=== PATIENT | female | born 1980 | race Caucasian/White ===

== ENCOUNTER 2020-07-27 08:42 | Emergency (ER) | payer OTHER ==
--- NOTE | 2020-07-27 09:47 | RAD ---
Radiograph left knee 4 views: 07/27/2020 HISTORY: 40-year-old female with acute, traumatic left knee pain FINDINGS: Multiple tendon or ligament screws, including distal femoral metaphysis ACL repair screw, screw at la teral femoral metaphysis, screw at medial tibial plateau, and screw at proximal tibial metaphysis. Moderate to severe joint space narrowing at all 3 compartments with small to moderate osteophytes. Po sterior subluxation of tibia and fibula relative to the femur. No large joint effusion. Soft tissue edema anteriorly. No acute fracture or dislocation identified. IMPRESSION: 1.) Postsurgical changes including anterior cruciate ligament repair and other tendon or ligament rep airs. 2) tricompartmental moderate to severe osteoarthrosis. 3) chronic subluxation of tibial femoral joint 4.) No acute fracture identified 5) diffuse osteopenia
== END 2020-07-27 10:27 | disposition home or self-care (01) ==
LOC: NAV ERS 08:42
DX: S83.92XA Sprain of unspecified site of left knee, initial encounter (principal); S86.912A Strain of unspecified muscle(s) and tendon(s) at lower leg level, left leg, initial encounter; M85.80 Other specified disorders of bone density and structure, unspecified site; F41.9 Anxiety disorder, unspecified; F32.9 Major depressive disorder, single episode, unspecified; F17.210 Nicotine dependence, cigarettes, uncomplicated; Z79.899 Other long term (current) drug therapy; W18.30XA Fall on same level, unspecified, initial encounter

== ENCOUNTER 2020-10-14 12:08 | Emergency (ER) | payer OTHER ==
--- NOTE | 2020-10-14 12:49 | RAD ---
XR Knee Lt 4 View STANDARD: 10/14/2020 12:24 PM CLINICAL INDICATION: History of known left knee injury COMPARISON: None. FINDINGS: Bones: There is diffuse osteopenia. There is postprocedural change of a prior ACL reconstruction. Th ere are metallic probes seen along the medial aspect of the tibia and the distal aspect of the lateral femur. There is an interference screw within the distal femur. There is heterotopic ossificat ions along the medial aspect of the distal femur. There is advanced tricompartmental osteophytes acting the left knee joint. Joints: There is prominent joint space narrowing involving the femoral tibial compartment. No joint c apsular distention is evident.. Soft Tissue: No acute abnormality.. IMPRESSION: Postoperative left knee with severe left knee osteoarthrosis. No acute fracture or subluxation..
== END 2020-10-14 12:54 | disposition home or self-care (01) ==
LOC: NAV ERS 12:08
DX: S83.92XA Sprain of unspecified site of left knee, initial encounter (principal); E66.01 Morbid (severe) obesity due to excess calories; D64.9 Anemia, unspecified; F17.210 Nicotine dependence, cigarettes, uncomplicated; Z79.84 Long term (current) use of oral hypoglycemic drugs; Z79.899 Other long term (current) drug therapy; X50.1XXA Overexertion from prolonged static or awkward postures, initial encounter

== ENCOUNTER 2020-12-11 13:19 | Emergency (ER) | payer OTHER ==
[2020-12-11] MEDS ORDERED: Sodium Chloride 0.9% 1,000 ML ONE (13:33)
[2020-12-11] MEDS ORDERED: Ondansetron PF 4 MG/2 ML Vial ONE (13:33)
[2020-12-11] MEDS ORDERED: Pantoprazole 40 MG VIAL ONE (13:45)
[2020-12-11 14:05] LABS: Bilirubin Small (Negative); Blood, Urine Negative (Negative); Clarity Clear (Clear); Glucose, Urine (Dipstick) Negative (Negative); Ketone, Urine 15 mg/dL (Negative); Leukocyte Negative (Negative); Nitrite Negative (Negative); Urobilinogen 0.2 mg/dL (Less than 2)
[2020-12-11 14:07] LABS: Protein, Urine (Dipstick) Trace mg/dL (Neg-Trace); Specific Gravity, Urine 1.028 (1.005-1.030)
[2020-12-11 14:08] LABS: #Basophils 0.1 thou/uL (0.0-0.2); #Eosinphils 0.2 thou/uL (0.0-0.7); #Lymphocytes 2.4 thou/uL (1.20-3.40); #Monocytes 0.8 thou/uL (0.11-0.59); #Neutrophils 8.4 thou/uL (1.40-6.50); %Basophils 0.7 % (0.0-1.0); %Eosinophils 1.3 % (0.0-10.0); %Lymphocytes 20.4 % (21.0-51.0); %Monocytes 6.5 % (0.0-10.0); %Neutrophils 71.1 % (42.0-75.0); ALT (SGPT) 16 U/L (8-55); Alkaline Phosphatase 92 U/L (40-110); Anion Gap 16 mmol/L (10-20); BUN (Urea Nitrogen) 16 mg/dL (7.0-18.7); Bilirubin, Total 0.2 mg/dL (0.2-1.2); Calc. Creatinine Clearance 0 mL/min (70-130); Calcium 8.8 mg/dL (7.8-10.44); Carbon Dioxide 23 mmol/L (22-29); Chloride 105 mmol/L (98-107); Globulin 3.5 g/dL (2.4-3.5); Glucose 90 mg/dL (70-105); Hemoglobin 12.6 g/dL (12.0-16.0); Lipase 17 U/L (8-78); Mean Corpuscular Hemoglobin 24.8 pg (27.0-31.0); Mean Corpuscular Volume 79.9 fL (78.0-98.0); Mean Platelet Volume 8.7 fL (7.4-10.4); Platelet Count 286 thou/uL (130-400); Potassium 4.5 mmol/L (3.5-5.1); Protein, Total 7.5 g/dL (6.0-8.3); RBC Distribution Width 14.6 % (11.5-14.5); Red Blood Cell (RBC) Count 5.08 mill/uL (4.20-5.40); Sodium 139 mmol/L (136-145); White Blood Cell (WBC) Count 11.8 thou/uL (4.8-10.8)
[2020-12-11 14:09] LABS: Pregnancy Test - Urine (BHCG) Negative (Negative); Pregu Control Background? CLEAR/WHITE (CLR/WHITE); Pregu Control Bar Appear? YES (CONTROL BAR); Specific Gravity 1.028 (1.002-1.036)
[2020-12-11 14:22] LABS: AST (SGOT) 26 U/L (5-34)
== END 2020-12-11 15:24 | disposition home or self-care (01) ==
LOC: NAV ERS 13:19
DX: K52.9 Noninfective gastroenteritis and colitis, unspecified (principal); E66.01 Morbid (severe) obesity due to excess calories; D64.9 Anemia, unspecified; F17.210 Nicotine dependence, cigarettes, uncomplicated; Z79.84 Long term (current) use of oral hypoglycemic drugs; Z79.899 Other long term (current) drug therapy
CPT/HCPCS: 80053; 81003; 81025; 83690; 85025; 96374; 96375; C9113; J2405; J7050

== ENCOUNTER 2021-01-02 16:06 | Emergency (ER) | payer OTHER ==
[2021-01-02] MEDS ORDERED: Ketorolac Tromethamine 60 MG/2 ML VIAL ONE (16:36)
[2021-01-02 16:47] LABS: Bilirubin Negative (Negative); Blood, Urine Moderate (Negative); Clarity Clear (Clear); Glucose, Urine (Dipstick) Negative (Negative); Ketone, Urine Negative (Negative); Leukocyte Trace (Negative); Nitrite Negative (Negative); Protein, Urine (Dipstick) Negative (Neg-Trace); Urobilinogen 0.2 mg/dL (Less than 2); pH, Urine 6.5 (5.0-9.0)
[2021-01-02 16:49] LABS: Pregnancy Test - Urine (BHCG) Negative (Negative); Pregu Control Background? CLEAR/WHITE (CLR/WHITE); Pregu Control Bar Appear? YES (CONTROL BAR); Specific Gravity 1.027 (1.002-1.036); Specific Gravity, Urine 1.027 (1.005-1.030)
[2021-01-02 17:02] LABS: Bacteria/HPF Rare-Few HPF (None Seen); WBC/HPF 0-3 HPF (0-3)
[2021-01-02 17:18] LABS: Anion Gap 15 mmol/L (10-20); BUN (Urea Nitrogen) 14 mg/dL (7.0-18.7); Calc. Creatinine Clearance 0 mL/min (70-130); Carbon Dioxide 24 mmol/L (22-29); Chloride 105 mmol/L (98-107); Glucose 100 mg/dL (70-105); Potassium 4.4 mmol/L (3.5-5.1); Sodium 140 mmol/L (136-145)
[2021-01-02 17:20] LABS: Hemoglobin 11.8 g/dL (12.0-16.0); Mean Corpuscular HGB CONC 29.1 g/dL (32.0-36.0); Mean Corpuscular Hemoglobin 24.2 pg (27.0-31.0); Mean Platelet Volume 7.4 fL (7.4-10.4); Platelet Count 266 thou/uL (130-400); RBC Distribution Width 15.6 % (11.5-14.5); Red Blood Cell (RBC) Count 4.89 mill/uL (4.20-5.40)
[2021-01-02 17:25] LABS: Anisocytosis SLIGHT = 6-15 cells (100X) (0-5/hpf); Eosinophils 4 % (0-10); Lymphocytes 23 % (21-51); MDiff Complete? YES; Monocytes 6 % (0-10); Neutrophil 67 % (42-75); Platelet Morphology Comment Appears Adequate
== END 2021-01-02 17:45 | disposition home or self-care (01) ==
LOC: NAV ERS 16:06
DX: R10.2 Pelvic and perineal pain (principal); I10 Essential (primary) hypertension; F17.210 Nicotine dependence, cigarettes, uncomplicated; Z79.899 Other long term (current) drug therapy
CPT/HCPCS: 80048; 81003; 81015; 81025; 85025; 96372; 99284; J0500; J1885

== ENCOUNTER 2021-01-20 10:53 | Emergency (ER) | payer OTHER ==
[2021-01-20] MEDS ORDERED: predniSONE 20 MG TAB ONE (11:35)
== END 2021-01-20 11:45 | disposition home or self-care (01) ==
LOC: NAV ERS 10:53
DX: J20.9 Acute bronchitis, unspecified (principal); F17.210 Nicotine dependence, cigarettes, uncomplicated; Z79.899 Other long term (current) drug therapy
CPT/HCPCS: 99283; J7512

== ENCOUNTER 2021-05-20 12:49 | Emergency (ER) | payer OTHER ==
[2021-05-20] MEDS ORDERED: Ibuprofen 800 MG TAB ONE (13:25)
[2021-05-21 12:26] LABS: SARS-CoV-2 PCR by NAA Not Detected (NotDetected)
== END 2021-05-20 13:54 | disposition home or self-care (01) ==
LOC: NAV ERS 12:49
DX: R50.9 Fever, unspecified (principal); R05 Cough; I10 Essential (primary) hypertension; Z20.822 Contact with and (suspected) exposure to COVID-19; F17.210 Nicotine dependence, cigarettes, uncomplicated; Z79.899 Other long term (current) drug therapy
CPT/HCPCS: 99283; U0003; U0005

== ENCOUNTER 2022-04-11 14:34 | Emergency (ER) | payer OTHER | END 2022-04-11 16:15 | disposition home or self-care (01) | LOC: NAV ERS 14:34 | DX: B34.9 Viral infection, unspecified (principal); Z20.822 Contact with and (suspected) exposure to COVID-19; K21.9 Gastro-esophageal reflux disease without esophagitis; Z79.899 Other long term (current) drug therapy | CPT/HCPCS: 99283; U0003; U0005 ==